=== PATIENT | male | born 1955 | race Caucasian/White ===

== ENCOUNTER 2025-02-17 11:37 | Day surgery (SDC) | payer MEDICARE, SELFPAY ==
[2025-02-17] MEDS: LACTATED RINGERS 1,000 ML 42 ML IV (11:54)
[2025-02-17 12:05] VITALS: BP 146/84; PULSE 52; RESP 16; TEMP 36.3; O2SAT 96
--- NOTE | 2025-02-17 12:57 | P.HP_ITS ---
History of Present Illness History of Present Illness Date Patient Seen: 02/17/25 Time Patient Seen: 12:57 Chief complaint: SDC Narrative: Jonh is a 69-year-old man with a history of polyps. His last colonoscopy was in 2020 and he had no polyps at that time. [facility] Social History Smoking Status: Never smoker alcohol intake: current Meds Home Medications and Allergies Home Medications ?Medication ?Instructions ?Recorded ?Confirmed ?Type aspirin 81 mg chewable tablet 81 mg PO DAILY 07/27/24 02/17/25 History atorvastatin 40 mg tablet 40 mg PO DAILY cholesterol 0 07/27/24 02/17/25 History reduction COVID vaccine [id number] (12y 0.5 ml IM ONCE #5 mL 08/19 Rx up)-adj(PF) 5 mcg/0.5 mL IM syringe (EUA) Allergies Allergy/AdvReac Type Severity Reaction Status Date / Time clindamycin Allergy Intermediate Hives Verified 02/17/25 11:59 Exam Vital Signs (past 8 hours): - 02/17/25 12:05 Temperature 97.3 F L Pulse Rate 52 L Respiratory Rate 16 Blood Pressure 146/84 H Pulse Oximetry 96 Oxygen Delivery Method Room Air Oxygen Delivery Method Room Air Const General: healthy appearing Assessment & Plan Assessment and plan (1) History of adenomatous polyp of colon: Status: Acute Plan Colonoscopy Time-Based Coding :: [TOTAL MINUTES] spent with patient and on the chart (including review of chart, obtaining history, exam, reviewing outside data, placing orders, documenting exam and treatment plan, and counseling patient) on [DATE]. PROFEE Law Reporter Document charge(s): No
--- NOTE | 2025-02-17 13:26 | SUR.OPER ---
case aborted because the prep was not sufficient
[2025-02-17 13:30] VITALS: BP 121/56; PULSE 46; RESP 20; TEMP 36.8; O2SAT 99
--- NOTE | 2025-02-17 13:32 | PM.OP.COLON ---
Operative Date/Time/Diagnoses Date of procedure: 02/17/25 Time of procedure: 13:33 Pre-op diagnosis: History of polyps Post-op diagnosis: same Procedure & Clinicians Study performed: Colonoscopy Same procedure(s) as scheduled: Yes Surgeon: Stan Salmeron Anesthesia Type: MAC +/- Procedure Notes Procedure in detail: Surgeon: Stan Salmeron MD Anesthesia: Aura Yuliana SALESFORCE TRAINER Procedure: The patient was brought to the endoscopy suite, placed in left lateral decubitus position. The patient was connected to monitoring devices. A time-out was performed. Sedation was administered. Once the patient was adequately sedated, a digital rectal exam was performed and was normal. The scope was then inserted and advanced to the cecum where the appendiceal orifice was identified and photographed. The scope was then slowly withdrawn over greater than 6 minutes. The prep was suboptimal and could not be cleared enough to adequately visualize all segments of the colon. The scope was retroflexed in the rectum and no abnormalities were seen. The scope was straightened and removed. The patient was awakened and brought to recovery. Scope withdrawal time: 13 minutes Sedation time: 22 minutes EBL: 0 Findings: Inadequate prep Estimated Blood Loss: 0 Complications: none Post-procedure Disposition: PACU
[2025-02-17 13:35] VITALS: BP 140/68; PULSE 45; RESP 18; O2SAT 99
[2025-02-17 13:49] VITALS: BP 141/75; PULSE 54; RESP 20; O2SAT 99
== END 2025-02-17 13:53 | disposition home or self-care (01) ==
PROVIDERS: PCP Family Medicine; Referring Provider Surgery; Visit Provider Surgery
PROC: 0DJD8ZZ Inspection of Lower Intestinal Tract, Via Natural or Artificial Opening Endoscopic (ICD-10-PCS; CPT 45378; principal; 2025-02-17 13:00)
DX: Z12.11 Encounter for screening for malignant neoplasm of colon (principal); Z86.0100 Personal history of colon polyps, unspecified; Z53.09 Procedure and treatment not carried out because of other contraindication
CPT/HCPCS: G0105; J2704; J7120

== ENCOUNTER 2025-03-17 09:59 | Day surgery (SDC) | payer MEDICARE, SELFPAY ==
[2025-03-14 09:33] VITALS: BMI 25.0
--- NOTE | 2025-03-17 | PATH_ITS ---
[facility] Accession Number: [id number] No. of containers..02 Tissue . 01 Material submitted: . PART A: colon - CECAL POLYPS X3 PART B: rectum - RECTAL POLYPS X2 . 01 Diagnosis: A. CECUM: Sessile serrated adenoma and unremarkable colonic mucosa, consistent with polypoid redundancies. Multiple levels examined. . B. RECTUM: Colonic mucosa with prominent lymphoid aggregates. Multiple levels examined. [facility] 03/28/2025 1647 Local . 01 Electronically signed: . Steph Díaz DO, Pathologist NPI- [id number] . 01 Gross description: . Received two formalin-filled containers, both labeled with the patient's name: . A. In a container labeled cecal polyps. Specimen consists of three fragments of whipple, soft tissue which range in size from 0.5 x 0.2 x 0.2 cm to 1.1 x 0.5 x 0.2 cm. All fragments are totally submitted in cassette A. B. In a container labeled rectal polyp. Specimen consists of two fragments of whipple, soft tissue which range in size from 0.3 x 0.3 x 0.2 cm to 0.7 x 0.6 x 0.3 cm. All fragments are totally submitted in cassette B. ([id number]) /KHADRA 03/22/2025 2141 Local . 01 Pathologist provided ICD-10: Z12.11 . 01 CPT . 817459, [id number] Specimen Comment: A courtesy copy of this report has been sent to [phone] Performed at: [address] [address], [place], [place] [id number] MD Rito Kulkarni MD Phone: [phone]
--- NOTE | 2025-03-17 10:54 | PM.HP.IH.1 ---
History of Present Illness History of Present Illness Date Patient Seen: 03/17/25 Time Patient Seen: 10:54 Chief complaint: ARC Narrative: John is a 69-year-old man who has a history of colon polyps. He had an attempted colonoscopy in January where the cecum was reached but the prep was not adequate to clear the colon so he re-attempted with an additional day of clear liquids and a different prep. His last colonoscopy was about 5 years ago and did not have polyps. No first-degree family members with colon cancer. 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) Social History Smoking Status: Former smoker alcohol intake: current Meds Home Medications and Allergies Home Medications ?Medication ?Instructions ?Recorded ?Confirmed ?Type aspirin 81 mg chewable tablet 81 mg PO DAILY 07/27/24 02/17/25 History atorvastatin 40 mg tablet 40 mg PO DAILY cholesterol 07/27/24 02/17/25 History reduction COVID vaccine [id number] (12y 0.5 ml IM ONCE #5 mL 12/29/24 Rx up)-adj(PF) 5 mcg/0.5 mL IM syringe (EUA) sodium sul 1.479 gram-potas ch See Rx Instructions PO PER PKG DIR 02/24/25 Rx 0.188 gram-magnes sul 0.225 gram #24 tabs tablet (Sutab) Allergies Allergy/AdvReac Type Severity Reaction Status Date / Time metoprolol Allergy Severe Severe Verified 03/14/25 09:33 hypotension, presyncope. clindamycin Allergy Intermediate Hives Verified 02/17/25 11:59 Exam Const General: healthy appearing Assessment & Plan Assessment and plan (1) History of adenomatous polyp of colon: Status: Acute Plan Colonoscopy Time-Based Coding :: [TOTAL MINUTES] spent with patient and on the chart (including review of chart, obtaining history, exam, reviewing outside data, placing orders, documenting exam and treatment plan, and counseling patient) on [DATE]. PROFEE Associate Application Developer Document charge(s): No
[2025-03-17 10:56] VITALS: BP 151/72; PULSE 51; RESP 15; TEMP 35.9; O2SAT 100
[2025-03-17] MEDS: FLEETS ENEMA 1 EACH PR (11:01)
[2025-03-17] MEDS: LACTATED RINGERS 1,000 ML 42 ML IV (11:01)
--- NOTE | 2025-03-17 12:25 | PM.OP.COLON ---
Operative Date/Time/Diagnoses Date of procedure: 03/17/25 Time of procedure: 12:25 Pre-op diagnosis: History of polyps Post-op diagnosis: same Procedure & Clinicians Study performed: Colonoscopy Same procedure(s) as scheduled: Yes Surgeon: Stan Salmeron Anesthesia Type: MAC +/- Procedure Notes Procedure in detail: Surgeon: Stan Salmeron MD Anesthesia: Zorina Tyson ARTIFICIAL SNOW MAKING MACHINE OPERATOR Procedure: The patient was brought to the endoscopy suite, placed in left lateral decubitus position. The patient was connected to monitoring devices. A time-out was performed. Sedation was administered. Once the patient was adequately sedated, a digital rectal exam was performed and was normal. The scope was then inserted and advanced to the cecum where the appendiceal orifice was identified and photographed. The scope was then slowly withdrawn over greater than 6 minutes. The mucosa was thoroughly inspected. There were three small polyps in the cecum removed with a cold snare and sent together. There were two small polyps in the rectum removed with a cold snare and sent together. The scope was retroflexed in the rectum. No other abnormalities were seen. The scope was straightened and removed. The patient was awakened and brought to recovery. Scope withdrawal time: 20 minutes Sedation time: 29 minutes Findings: 3 small cecal polyps and 2 small rectal polyps Estimated Blood Loss: 5 Complications: none Post-procedure Disposition: PACU
[2025-03-17 12:29] VITALS: BP 118/63; PULSE 53; RESP 18; TEMP 37; O2SAT 99
[2025-03-17 12:33] VITALS: BP 122/58; PULSE 53; RESP 23; O2SAT 99
[2025-03-17 12:40] VITALS: BP 143/69; PULSE 55; RESP 27; TEMP 36.7; O2SAT 99
== END 2025-03-17 12:55 | disposition home or self-care (01) ==
PROVIDERS: PCP Family Medicine; Referring Provider Surgery; Visit Provider Surgery
PROC: 0DJD8ZZ Inspection of Lower Intestinal Tract, Via Natural or Artificial Opening Endoscopic (ICD-10-PCS; CPT 45378; principal; 2025-03-17 11:00)
DX: Z12.11 Encounter for screening for malignant neoplasm of colon (principal); Z86.0101 Personal history of adenomatous and serrated colon polyps; I10 Essential (primary) hypertension; I48.91 Unspecified atrial fibrillation; E78.5 Hyperlipidemia, unspecified; I48.92 Unspecified atrial flutter; Z79.82 Long term (current) use of aspirin; Z95.1 Presence of aortocoronary bypass graft; Z87.891 Personal history of nicotine dependence; D12.0 Benign neoplasm of cecum
CPT/HCPCS: 45385; J2704; J7120